=== PATIENT | female | born 1990 | race Caucasian/White ===

== ENCOUNTER 2019-04-01 05:30 | Outpatient (CLI) | payer BC ==
[~2019-04-01] VITALS: Ht 167.7 cm; Wt 134.1 kg
[2019-04-01] MEDS ORDERED: LEVO88TA54 PO (10:41)
[2019-04-01] MEDS ORDERED: LISD70CA3 PO (10:41)
== END 2019-04-01 10:48 | disposition home or self-care (01) ==
LOC: PREOP 05:30
PROVIDERS: ATTEND Otolaryngology Otolaryngology/Facial Plastic Surgery
DX: Z01.818 Encounter for other preprocedural examination (principal)

== ENCOUNTER 2019-04-09 08:05 | Day surgery (SDC) | payer BC ==
[2019-04-09] VITALS (13 sets, daily range): BP systolic 99–135; BP diastolic 50–82
[~2019-04-09] VITALS: Ht 167.7 cm; Wt 134.1 kg
[~2019-04-09 08:05] MED LIST: LEVO88TA54 PO; LISD70CA3 PO
[2019-04-09] MEDS: LACTATED RINGERS 1,000 ML IV PRN ×2 (08:33→11:25)
[2019-04-09 08:40] LABS: BASOPHILS % (AUTO) 0 % (0-10); EOSINOPHILS # (AUTO) 0.3 10^3/uL (0.0-0.3); EOSINOPHILS % (AUTO) 2 % (0-10); HEMATOCRIT 42 % (35-52); HEMOGLOBIN 14.4 G/DL (11.5-16.0); LYMPHOCYTES # (AUTO) 3.1 X 10^3 (1.0-4.0); LYMPHOCYTES % (AUTO) 26 % (12-44); MEAN CORPUSCULAR HEMOGLOBIN 30 PG (25-34); MEAN CORPUSCULAR HGB CONC 34 G/DL (32-36); MEAN CORPUSCULAR VOLUME 88 FL (80-99); MEAN PLATELET VOLUME 8.5 FL (7.4-10.4); MONOCYTES # (AUTO) 0.8 X 10^3 (0.0-1.0); MONOCYTES % (AUTO) 6 % (0-12); NEUTROPHILS # (AUTO) 7.9 X 10^3 (1.8-7.8); NEUTROPHILS % (AUTO) 65 % (42-75); PLATELET COUNT 301 10^3/uL (130-400); RED CELL DISTRIBUTION WIDTH 13.7 % (10.0-14.5); WHITE BLOOD COUNT 12.1 10^3/uL (4.3-11.0)
[2019-04-09 09:04] LABS: BUN/CREATININE RATIO 13; CALCIUM 9.5 MG/DL (8.5-10.1); CARBON DIOXIDE 22 MMOL/L (21-32); CHLORIDE 107 MMOL/L (98-107); CREATININE SERUM 0.76 MG/DL (0.60-1.30); GFR ESTIMATED > 60; GLUCOSE 94 MG/DL (70-105); POTASSIUM 3.7 MMOL/L (3.6-5.0); SODIUM 141 MMOL/L (135-145)
--- NOTE | 2019-04-09 09:33 | Progress Note-Pre Operative ---
Pre-Operative Progress Note H&P Reviewed The H&P was reviewed, patient examined and no changes noted. Date Seen by Provider: Apr 09, 2019 Time Seen by Provider: 09:00 Date H&P Reviewed: Apr 09, 2019 Time H&P Reviewed: 09:00 Pre-Operative Diagnosis: REc Tons/ T/A hyper YONIS GIL MD Apr 09, 2019 09:32 POS
[2019-04-09] MEDS ORDERED: LIDOCAINE PF 2% 5 ML (XYLOCAINE) VIAL ONE ×2 (10:00→10:52)
[2019-04-09] MEDS ORDERED: proPOfol 200 MG/20 ML (DIPRIVAN) VIAL IV ONE ×2 (10:00→10:52)
[2019-04-09] MEDS ORDERED: SEVOFLURANE (ULTANE) 15 ML INHAL SOLN ONE ×3 (10:00→10:51)
[2019-04-09] MEDS ORDERED: fentaNYL INJECTION 100 MCG/2 ML AMP ONE (10:00)
[2019-04-09] MEDS ORDERED: MIDAZOLAM 2 MG/2 ML (VERSED) VIAL ONE (10:00)
[2019-04-09] MEDS ORDERED: NS IV 1000 ML 1,000 ML IV SCH (10:39)
--- NOTE | 2019-04-09 10:39 | Progress Note-Post Operative ---
Post-Operative Progess Note Surgeon (s)/Risk Assessment Analyst (s) Surgeon YONIS GIL MD Risk Assessment Analyst n/a Pre-Operative Diagnosis REc Tons/ T/A hyper Post-Operative Diagnosis same Post-Op Procedure Note Date of Procedure: Apr 09, 2019 Name of Procedure Performed: Tonsillectomy Description & Findings Description and Findings: n/a Anesthesia Type get Estimated Blood Loss minimal Packing none. Specimen(s) collected/removed tonsils YONIS GIL MD Apr 09, 2019 10:39 POS
[2019-04-09] MEDS ORDERED: HYDROcodone/APAP 7.5MG-325 MG/15 ML (LORTAB) UDC PO PRN (10:45)
[2019-04-09] MEDS ORDERED: APAP 325 MG/10.15 ML LIQ (TYLENOL) UDC PO PRN (10:45)
--- NOTE | 2019-04-09 10:49 | Anesthesia-General Post-Op ---
General Patient Condition Mental Status/LOC: Same as Preop Cardiovascular: Satisfactory Nausea/Vomiting: Absent Respiratory: Satisfactory Pain: Controlled Complications: Absent Post Op Complications Complications None Follow Up Care/Instructions Patient Instructions None needed. Anesthesia/Patient Condition Patient Condition Patient is doing well, no complaints, stable vital signs, no apparent adverse anesthesia problems. No complications reported per nursing. KATHIE MINAYA CRNA Apr 09, 2019 10:49 POS
[2019-04-09] MEDS ORDERED: ROCURONIUM 10 MG/ML 5 ML SYRINGE IV ONE (10:52)
[2019-04-09] MEDS ORDERED: ONDANSETRON 4 MG/2 ML (SDV) Z0FRAN ONE (10:52)
[2019-04-09] MEDS ORDERED: DEXAMETHASONE 10 MG/ML (DECADRON) 1 ML VIAL ONE (10:52)
[2019-04-09] MEDS ORDERED: NEOSTIGMINE 3 MG/3 ML VIAL ONE (10:52)
[2019-04-09] MEDS ORDERED: GLYCOPYRROLATE 0.2 MG/ML (ROBINUL) 2 ML VIAL ONE (10:52)
[2019-04-09] MEDS ORDERED: fentaNYL INJECTION 100 MCG/2 ML AMP IVP ONE (11:00)
[2019-04-09] MEDS ORDERED: morphine INJ 10 MG/ML 1ML (SYR OR VIAL) IVP ONE (11:00)
[2019-04-09] MEDS ORDERED: ONDANSETRON 4 MG/2 ML (SDV) Z0FRAN IVP PRN (11:00)
[2019-04-09] MEDS ORDERED: TETRACAINESUCKERS MT (13:24)
[2019-04-09] MEDS ORDERED: DEXAINTSOL PO (13:24)
[2019-04-09] MEDS ORDERED: HYDR15SO8 PO (13:24)
[2019-04-09] MEDS ORDERED: AMOX250S5 PO (13:24)
== END 2019-04-09 14:00 | disposition home or self-care (01) ==
LOC: SDC 08:05
PROVIDERS: ATTEND Otolaryngology Otolaryngology/Facial Plastic Surgery
DX: J03.91 Acute recurrent tonsillitis, unspecified (principal); J35.01 Chronic tonsillitis; F17.210 Nicotine dependence, cigarettes, uncomplicated; J35.8 Other chronic diseases of tonsils and adenoids; E66.01 Morbid (severe) obesity due to excess calories; F90.9 Attention-deficit hyperactivity disorder, unspecified type; Z79.899 Other long term (current) drug therapy; Z68.42 Body mass index [BMI] 45.0-49.9, adult
CPT/HCPCS: 36415; 80048; 84703; 85025; 87081